=== PATIENT | female | born 1995 | race Caucasian/White ===

== ENCOUNTER 2017-04-01 06:07 | Emergency (ER) | payer BC ==
[~2017-04-01] VITALS: Ht 172.7 cm; Wt 113.4 kg
[2017-04-01 06:17] VITALS: BP 132/74
== END 2017-04-01 06:56 | disposition home or self-care (01) ==
LOC: ER 06:07
DX: J03.90 Acute tonsillitis, unspecified (principal)
CPT/HCPCS: 99281; A4606; Z7610; Z7502